=== PATIENT | male | born 1965 | race Caucasian/White ===

== ENCOUNTER 2022-05-29 16:05 | Emergency (ER) | payer MEDICAID ==
[~2022-05-29] VITALS: Ht 167.6 cm; Wt 51.0 kg
[2022-05-29 16:08] VITALS: BP 116/79
[2022-05-30] MEDS ORDERED: NAPR-681 MT (17:48)
== END 2022-05-29 22:00 | disposition left against medical advice (07) ==
LOC: ER 16:18
DX: Z53.21 Procedure and treatment not carried out due to patient leaving prior to being seen by health care provider (principal)

== ENCOUNTER 2022-05-30 15:13 | Emergency (ER) | payer MEDICAID ==
[~2022-05-30] VITALS: Ht 157.5 cm; Wt 57.0 kg
[2022-05-30 15:20] VITALS: BP 144/90
[2022-05-30] MEDS ORDERED: NAPR-681 MT (17:48)
[2022-05-30] MEDS: KETOROLAC 30MG/ML VIAL IM ONE ×2 (18:05→18:13)
[2022-05-30] MEDS: TETANUS AND DIPHTHERIA TOX/PF 0.5ML SYR (ADULT) IM ONE ×2 (18:05→18:13)
== END 2022-05-30 18:31 | disposition home or self-care (01) ==
LOC: ER 15:13
DX: S01.01XA Laceration without foreign body of scalp, initial encounter (principal); S20.211A Contusion of right front wall of thorax, initial encounter; F12.10 Cannabis abuse, uncomplicated; Y00.XXXA Assault by blunt object, initial encounter; Y93.89 Activity, other specified; Y92.89 Other specified places as the place of occurrence of the external cause
CPT/HCPCS: 71046; 90714; 99283; J1885